=== PATIENT | female | born 1965 | race Caucasian/White ===

== ENCOUNTER → 2016-10-31 | Outpatient (CLI) | payer OTHER ==
--- NOTE | 2016-10-31 12:38 | RAD ---
DATE: 10/31/2016 EXAM: DIGITAL DIAGNOSTIC BILATERAL HISTORY: Biopsy follow-up, history of fibroadenoma COMPARISON: 05/04/2015 This study was interpreted with the benefit of Computerized Aided Detection (CAD). FINDINGS: Breast Density: SCATTERED The breast parenchyma shows scattered fibroglandular densities. Breast parenchyma level B. There are no dominant suspicious masses, suspicious microcalcifications or evidence of architectural distortion. Biopsy clip marker identified in the right breast. IMPRESSION: Negative exam BI-RADS CATEGORY: 1 NEGATIVE RECOMMENDED FOLLOW-UP: 12M 12 MONTH FOLLOW-UP PQRS compliance statement: Patient information was entered into a reminder system with a target due date 10/31/2017 for the next mammogram. Mammography is a sensitive method for finding small breast cancers, but it does not detect them all and is not a substitute for careful clinical examination. A negative mammogram does not negate a clinically suspicious finding and should not result in delay in biopsying a clinically suspicious abnormality. "Our facility is accredited by the [employer] Mammography [employer]."
== END | disposition home or self-care (01) ==
LOC: MAMMO 12:08
PROVIDERS: ATTEND Nurse Practitioner Adult Health
DX: Z00.01 Encounter for general adult medical examination with abnormal findings (principal); N63 Unspecified lump in breast; D24.1 Benign neoplasm of right breast; R53.83 Other fatigue
CPT/HCPCS: G0204; 77066

== ENCOUNTER → 2017-03-23 | Outpatient (CLI) | payer OTHER ==
--- NOTE | 2017-03-23 10:44 | RAD ---
EXAM: ABDOMINAL ULTRASOUND. HISTORY: Hypertension, hematuria, left flank pain. COMPARISON: 11/20/2007. FINDINGS: Sonographic evaluation of the abdomen was performed. The liver appears normal in parenchymal echotexture. There are no focal lesions. The spleen measures 8.7 cm. The gallbladder is partially decompressed but unremarkable without evidence of stones, wall thickening or pericholecystic fluid. There is no sonographic Tabares sign. The common duct measures 4 mm. The visualized portions of the head and body of the pancreas reveal no abnormality. The right kidney measures 11.5 cm. Cortical thickness and echogenicity are preserved. The left kidney measures 10.6 cm. Cortical thickness and echogenicity are preserved. Bilateral prominence of the renal pelves most likely indicates extrarenal pelves as seen on prior CT. There is no clear hydronephrosis. The visualized portions of the abdominal aorta and inferior vena cava are grossly patent and normal in caliber. Images of the bladder reveal no abnormality. Both ureteral jets are visualized. IMPRESSION: 1. No cause for pain is identified. CT could further assess for nephroureterolithiasis or renal/urothelial lesions if there is persistent concern.
== END | disposition home or self-care (01) ==
LOC: US 07:31
PROVIDERS: ATTEND Physician Assistant
DX: R31.29 Other microscopic hematuria (principal); I10 Essential (primary) hypertension; K82.8 Other specified diseases of gallbladder
CPT/HCPCS: 76700

== ENCOUNTER → 2017-04-11 | Outpatient (CLI) | payer OTHER ==
--- NOTE | 2017-04-11 10:47 | RAD ---
CT of the head without contrast, 04/11/2017: History: Dizziness with arm tingling The ventricles are within normal limits in size. There is no shift of the midline structures. There is no evidence of acute intracranial hemorrhage or mass effect. No abnormal extra-axial fluid collection or mass is seen. IMPRESSION: The CT of the head without contrast reveals no significant abnormality. PQRS Compliance Statement: One or more of the following individualized dose reduction techniques were utilized for this examination: 1. Automated exposure control 2. Adjustment of the mA and/or kV according to patient size 3. Use of iterative reconstruction technique
== END | disposition home or self-care (01) ==
LOC: CT 09:28
PROVIDERS: ATTEND Physician Assistant
DX: I10 Essential (primary) hypertension (principal); R51 Headache; R42 Dizziness and giddiness; R20.2 Paresthesia of skin
CPT/HCPCS: 70450